=== PATIENT | female | born 1970 | race Hispanic/Latino ===

== ENCOUNTER 2017-06-08 20:30 | Observation (INO) | payer OTHER ==
[~2017-06-08] VITALS: Ht 162.6 cm; Wt 67.9 kg
[2017-06-08 20:40] VITALS: BP 138/82; PULSE 66; RESP 16; O2SAT 100
[2017-06-08] MEDS ORDERED: 0.9% Sodium Chloride 1,000 ML IV ONE (21:06)
--- NOTE | 2017-06-08 21:06 | ED.REPORT ---
HPI-Abd Pain F 40 and Over Date of Service Jun 08, 2017 ED Provider: Tyler Maguire DO Pt is an otherwise healthy 46 year old female who presents to the ED complaining of RUQ and epigastric abdominal pain onset 5 days ago. She c/o associated nausea and vomiting onset yesterday night. The pt denies any other symptoms. Pt reports that her pain is exacerbated with deep breathing. She denies a history of cholecystectomy and appendectomy. Nursing Notes Stated Complaint: STOMACH PAIN,VOMITING Chief Complaint: Female Abdominal Pain Nursing Notes Reviewed: Yes Allergies: Uncoded Allergies: OPIATES (Adverse Reaction, Intermediate, 06/08/17) vomiting General Time Seen by MD: 21:06 Chief Complaint Abdominal pain Hx Obtained From: Patient Arrived By: Walk-in Sudden in Onset?: No Onset Occurred: 5 days ago Symptom Duration: Since onset Location: : Epigastric: RUQ Quality: Painful Radiation: : Does not radiate Severity: Current: Moderate Severity: Maximum: Moderate Recent Healthcare: No recent doctor visit, No recent hospitalization Similar Sx Previous: No Past Medical History Past Medical History None reported - healthy Past Surgical History Denies: Appendectomy, Cholecystectomy Smoking History Unknown if Ever Smoker Social History Alcohol Use: Denies alcohol use Drug Use: Denies drug use Other Social History: Good social support Ambulatory Status Independent Review of Systems Constitutional: Denies: Fever Respiratory: Denies: Non-productive cough GI: Reports: Abdominal pain, Nausea, Vomiting Complete sys rev & neg: except as marked. Physical Exam Vital Signs Vital Signs (First) Date Time Temp Pulse Resp B/P Pulse Ox O2 Delivery O2 Flow Rate FiO2 06/08/17 20:40 36.8 66 16 138/82 100 Room Air Initial VS: Reviewed Head / Eyes: Atraumatic, Normocephalic Neck: Supple, Full range of motion Extremities: Vascular intact, Neuro intact Skin: Warm, Dry, No cyanosis Neurologic: Alert, Oriented, Nonfocal Psychiatric: Mood/affect normal, Behavior normal General/Constitutional: Awake, Alert Respiratory / Chest: Atraumatic, Breath sounds NL, Breath sounds = bilat Cardiovascular: Heart rate NL, Regular rhythm, Heart sounds NL Abdomen: Soft Moderate epigastric and RUQ tenderness Back: Atraumatic, Full range of motion Interpretation & Diagnostics US ABDOMEN - LIMITED: CONCLUSION: Inflamed thickened wall consistent with cholecystitis Wet Read by: ED physician Lab Results Interpretation Result Diagram: 06/08/17212406/08/172124 Test 06/08/17 21:25 06/08/17 21:59 White Blood Count 5.5th/mm3 (3.8-10.1) Red Blood Count 4.24mil/mm3 (3.90-5.20) Hemoglobin 13.4g/dL (12.0-15.6) Hematocrit 40.2% (35.0-46.0) Mean Corpuscular Volume 94.8fL (81-100) Mean Corpuscular Hemoglobin 31.6pg (27.0-35.0) Mean Corpuscular Hemoglobin Concent 33.3% (32.0-37.0) Red Cell Distribution Width 13.8% (12.3-15.4) Platelet Count 284bil/L (150-400) Neutrophils (%) (Auto) 63.6% (40-74) Lymphocytes (%) (Auto) 26.0% (14-46) Monocytes (%) (Auto) 7.5% (4-12) Eosinophils (%) (Auto) 2.2% (0-5) Basophils (%) (Auto) 0.5% (0-3) Sodium Level 140mEq/L (134-144) Potassium Level 4.6mEq/L (3.5-5.2) Chloride Level 103mEq/L (97-108) Carbon Dioxide Level 23mmol/L (18-29) Blood Urea Nitrogen 13mg/dL (6-24) Creatinine 0.33mg/dL (0.57-1.00) Estimat Glomerular Filtration Rate 307mL/min (>59) Glucose Level 112mg/dL (60-99) Lactic Acid Level 1.3mmol/L (0.4-2.0) Calcium Level 9.1mg/dL (8.5-10.1) Magnesium Level 2.2mg/dL (1.6-2.6) Total Bilirubin 3.7mg/dL (0.0-1.2) Aspartate Amino Transf (AST/SGOT) 169U/L (0-50) Alanine Aminotransferase (ALT/SGPT) 223U/L (0-32) Alkaline Phosphatase 141U/L (25-150) Total Protein 7.4g/dL (6.4-8.4) Albumin 4.0g/dL (3.4-5.0) Lipase 38U/L (13-60) Urine Color Dark yellow (YELLOW) Urine Appearance Clear (CLEAR,HAZY) Urine pH 7.0 (5.0-8.0) Urine Specific Wal[place] 1.015 (1.003-1.035) Urine Protein Negativemg/dL (NEG,TRACE) Urine Glucose (UA) Negativemg/dL (NEGATIVE) Urine Ketones Tracemg/dL (NEGATIVE) Urine Occult Blood Negative (NEGATIVE) Urine Nitrite Negative (NEGATIVE) Urine Bilirubin Moderate (NEGATIVE) Urine Ictotest Pos (Negative) Urine Urobilinogen 2.0mg/dL (NORMAL) Urine Leukocyte Esterase Small (NEGATIVE) Urine RBC 0-2/hpf (0-2) Urine WBC 6-10/hpf (0-5) Urine Epithelial Cells Occasional/hpf (NONE-MOD) Urine Crystals None seen (NONE SEEN) Urine Bacteria Few/hpf (NONE-FEW) Urine Hyaline Casts None/lpf (NONE) Urine Granular Casts None seen (NONE SEEN) Urine Waxy Casts None seen (NONE SEEN) Urine Red Blood Cell Casts None seen (NONE SEEN) Urine White Blood Cell Casts None seen (NONE SEEN) Urine Mucus Present (None Seen) Urine Trichomonas None seen (NONE SEEN) Urine Yeast None (NONE SEEN) Urinalysis Comment None Urine Culture Reflexed Indicated ECG Interpretation ECG Interpretation: Sinus rhythm with a rate of 59 Time: 21:25 Interpreted by: ED physician Normal ECG Interpretation: Normal ECG w/ rate of... Re-Eval/Medical Decision Med Decision/Clinical Course Postprandial right upper quadrant pain was associated jaundice and mild hepatitis. Ultrasound shows thickening of the gallbladder wall the gallbladder wall looks hyperemic may be edematous to me. I think this is acute cholecystitis clinically so therefore we will treat as such. We initiated broad -spectrum antibiotics. IV Toradol was given complete resolution of pain. With the biochemical abnormalities and the impressive ultrasound we will admit for definitive surgical involvement. I consulted with Dr. Curry and we will schedule an MR CP in the morning continue with Rogers and a surgical consultation. Source of Hx: Old records Re-Evaluation/Progress : Time of Eval: 01:03 Re-Evaluation/Progress Note: Pt rechecked. Informed pt of plan for admission. Pt understands agrees with plan for admission. All questions addressed. Consultation : Referral / Consult Name: Niranjan Curry MD Consulted With: Surgeon Call Returned at: 01:03 Machine Or Machinery Mechanic: Agrees with eval, Agrees with plan Note: Discussed pt's case. Counseled Regarding: Diagnosis, Lab results, Need for admission Discharge & Departure Primary Impression: Cholecystitis Additional Impression: Jaundice Disposition: ADMITTED TO HOSPITAL Discharge Condition All VS Reviewed: Yes Condition: Stable Referrals: Jie Rod MD (PCP) Scribe Attestation Portions of this note were transcribed by Jie Perez. I, Dr. Maguire personally performed the history, physical exam and medical decision-making; I reviewed and confirmed the accuracy of the information in the transcribed note. Signed by : Duyen Chase, 06/08/17. copies to: Jie Rod MD, Todd P DO Jun 08, 2017 21:06 Jie Mayfield Jun 08, 2017 21:51
[2017-06-08] MEDS ORDERED: Ondansetron 2 mg/mL 2 mL Inj IVPUSH PRN (21:10)
[2017-06-08 21:29] LABS: BASOPHILS % (AUTO) 0.5 % (0-3); EOSINOPHILS % (AUTO) 2.2 % (0-5); MONOCYTES % (AUTO) 7.5 % (4-12); Mean Corpuscular Hemoglobin 31.6 pg (27.0-35.0); Mean Corpuscular Volume 94.8 fL (81-100); NEUTROPHILS % (AUTO) 63.6 % (40-74); Platelet Count 284 bil/L (150-400)
[2017-06-08 21:50] LABS: Magnesium 2.2 mg/dL (1.6-2.6)
[2017-06-08 22:25] LABS: APPEARANCE,URINE CLEAR (CLEAR,HAZY); COLOR,URINE DARK YELLOW (YELLOW); OCCULT BLOOD,URINE NEGATIVE (NEGATIVE)
[2017-06-08 22:26] LABS: ICTOTEST,URINE POS (Negative)
[2017-06-08 23:20] VITALS: BP 115/75; PULSE 61; RESP 18; O2SAT 99
[2017-06-09] MEDS ORDERED: Piperacillin-Tazo 3.375 Gm Inj 3.375 GM in Dextrose 5% Minibag Plus 50 ML IV ONE (00:15)
[2017-06-09] MEDS ORDERED: Lactated Ringer's 1,000 ML IV SCH (01:21)
[2017-06-09] MEDS ORDERED: Ketorolac 15 mg/mL Inj IVPUSH PRN (01:25)
[2017-06-09] MEDS ORDERED: Ondansetron 2 mg/mL 2 mL Inj IVPUSH PRN (01:25)
[2017-06-09] MEDS ORDERED: Alum-Mag Hydrox-Simeth 30 mL Suspension PO PRN (01:25)
[2017-06-09 03:30] VITALS: BP 117/80; PULSE 62; RESP 20; O2SAT 99
[2017-06-09 04:16] VITALS: BP 117/80; PULSE 62; RESP 20; O2SAT 99
[2017-06-09 04:17] VITALS: BP 155/90; PULSE 57; RESP 16; O2SAT 97
--- NOTE | 2017-06-09 04:41 | NUR ---
ADMIT; 46 yr old female to room 1007 via gurney from e.r. approx. 0415 with c/o abd/epigastric pain past 5 days with nausea/vomiting which happened yesterday only. Niece accompanying pt. and wanted to interpret for her aunt. Pt speaks [place]. Npo. Eyes seem blood shot.
--- NOTE | 2017-06-09 06:27 | NUR ---
PAIN/GI; no c/o pain voiced. Dozed off and on. Voided per bathroom. No c/o nausea.
[2017-06-09] MEDS ORDERED: Piperacillin-Tazo 3.375 Gm Inj 3.375 GM in Dextrose 5% Minibag Plus 50 ML IV SCH (08:30)
--- NOTE | 2017-06-09 09:28 | DRSVH ---
PROCEDURE: US ABDOMEN, LIMITED ([id number]) INDICATIONS: Right upper quadrant pain TECHNIQUE: Real-time focused scanning was performed of the right upper quadrant, with image documentation. COMPARISON: None. FINDINGS: The liver is increased in echogenicity compatible with fatty infiltration. There is biliary sludge within the gallbladder which is not well-visualized. A stone cannot be exclu ded. There is gallbladder wall thickening measuring up to approximately 5-6 mm. No definite pericho lecystic fluid. No biliary ductal dilatation. Common bile duct measures up to 5 mm. IMPRESSION: 1. Limited study demonstrates biliary sludge and gallbladder wall thickening. No definite stone yani ntified but evaluation of the gallbladder is limited. No pericholecystic fluid. The findings are eq uivocal and if there is persistent clinical suspicion for cholecystitis, recommend a short-term follo wup repeat study or MRCP. Dictated by: Benny Amor M.D. on 06/09/2017 at 9:21 Approved by: Benny Amor M.D. on 06/09/2017 at 9:26
[2017-06-09 11:08] LABS: BASOPHILS % (AUTO) 0.3 % (0-3); MONOCYTES % (AUTO) 4.8 % (4-12); Mean Corpuscular Hemoglobin 31.3 pg (27.0-35.0); Mean Corpuscular Volume 94.1 fL (81-100); NEUTROPHILS % (AUTO) 61.7 % (40-74); Platelet Count 262 bil/L (150-400)
[2017-06-09 12:14] VITALS: BP 129/78; PULSE 51; RESP 16; O2SAT 98
--- NOTE | 2017-06-09 12:43 | DRSVH ---
PROCEDURE: MR ABDOMEN MRCP INDICATIONS: JAUNDICE, CHOLECYSTITIS TECHNIQUE: Coronal HASTE through the abdomen, axial 2-D FLASH in- and [id number], and breath-hold T2 FSE with fat saturation through the biliary system and pancreas. Oblique coronal and axial thin-slice HASTE, radial thick-slab HASTE centered on the extrahepatic bile ducts. COMPARISON: [facility], , [facility] L[facility], 06/08/2017, 23:43. FINDINGS: Image quality: Diagnostic. Pancreas and biliary system: There is gallbladder wall thickening measuring up to 5 mm. No discrete intraluminal gallstones identified. No definite pericholecystic fluid. No intra-or extra hepatic b iliary ductal dilatation. The common bile duct measures up to approximately 5 mm. No filling defect s identified within the common bile duct to suggest choledocholithiasis. The pancreatic duct is nond istended. No peripancreatic edema or fluid to suggest pancreatitis. Other solid organs: Liver and spleen are normal in size. No adrenal nodules. The kidneys demonstra te no hydronephrosis. Nodes and vessels: No retroperitoneal or mesenteric adenopathy by size criteria. Aorta and inferior vena cava are normal in size. Bowel and peritoneum: Visualized bowel loops are normal in caliber. No free fluid. Lung bases: No basal pleural effusions. Heart size is normal. Bones and soft tissues: No ventral hernias. Bone marrow is of normal overall signal. IMPRESSION: 1. Nonspecific gallbladder wall thickening without evidence of cholelithiasis or pericholecystic flu id. If there is clinical suspicion for acalculous cholecystitis, further evaluation may be obtained with a HIDA scan. 2. No biliary ductal dilatation or choledocholithiasis. Dictated by: Benny Amor M.D. on 06/09/2017 at 12:37 Approved by: Benny Amor M.D. on 06/09/2017 at 12:42
[2017-06-09] MEDS ORDERED: OXYC-530 PO (12:50)
--- NOTE | 2017-06-09 12:50 | PCM.DISURG ---
Surgical Discharge Instruction Date of Service Jun 09, 2017 Dates of Hospitalization Date of Hospital Admission Jun 09, 2017 at 03:46 Providers Admitting Physician: Niranjan Curry MD Primary Care Physician: Noprafiq Attending Physician: Niranjan Curry MD Discharge Diagnosis Discharge Diagnosis acalculous biliary colic versus hepatitis Diet Discharge Diet: Low fat Activity Discharge Activity-General: No restrictions Follow Up Plan Follow Up Plan in the General Surgery [facility] clinic in one week Call your provider for: Fever (over 101.5F), Increasing abdominal pain Niranjan Curry MD Jun 09, 2017 12:50
--- NOTE | 2017-06-09 14:00 | NUR ---
Discharge MRCP negative and pt. reported pain minimal. Reviewed discharge instructions with pt. and family. Her niece translated discharge instructions. Risks (sedation, dependence, misuse, etc), indications, and precautions of using Roxicodone were discussed. Pt. and family verbalized understanding. Encouraged and explained low fat diet. Pt. was discharged home at 1357. Family transported her home.
--- NOTE | 2017-06-09 14:39 | HP ---
[address] [address] HISTORY AND PHYSICAL PATIENT: REE MOONEY : 1970 MR#: [id number] ADMIT: 06/09/2017 JOB ID: [id number] CHIEF COMPLAINT: Abdominal pain. HISTORY OF PRESENT ILLNESS: The patient speaks [employer], and interpretation was achieved using a combination of a Frisian video reimbursement auditor, and her family, who were interpreting from Latvian directly to [employer]. The patient is otherwise healthy and presented to the emergency department last night with five days of epigastric and right upper quadrant abdominal pain. She was also having nausea and vomiting yesterday. She has not had any fevers or chills. She has never been jaundiced. Her initial workup included an ultrasound which was described over the phone to me as showing hyperemic gallbladder wall consistent with cholecystitis. This morning when seen by me, she is not complaining of any abdominal pain. She denies nausea. She otherwise feels good. PAST MEDICAL HISTORY: None. PAST SURGICAL HISTORY: None. MEDICATIONS: None. ALLERGIES: No known drug allergies. SOCIAL HISTORY: She works [employer]. She has never smoked. She denies alcohol and illicit drug use. FAMILY HISTORY: Her sister underwent cholecystectomy. REVIEW OF SYSTEMS: A 10-point review of systems is negative except as described in history of present illness. Specifically, no history of unplanned weight loss, no diarrhea. PHYSICAL EXAMINATION: Body mass index 25.7, temperature 36.5, pulse 57, blood pressure 155/90. Saturation 97% on room air. General: She is resting in bed in no acute distress. HEENT: Sclerae are anicteric. Mucous membranes are moist. Neck: No lymphadenopathy. Chest: Clear to auscultation bilaterally. Heart: Regular rate and rhythm. No murmurs. Abdomen is soft, nontender, nondistended. There is no Posey's sign. There are no hernias and no palpable masses. She has no guarding, no rebound tenderness. Extremities: No edema. Neuro: No deficits. Psychiatric: Affect is appropriate. LABORATORIES: White count is 3.5, hematocrit 39.7, platelets 262. Creatinine 0.36. Glucose 102. Total bilirubin 3.0. AST 207, ALT 230. Alkaline phosphatase 143, lipase 38. IMAGING: Ultrasound official read shows a limited study with some biliary sludge and mild gallbladder wall thickening. There is no definite stone but evaluation of the gallbladder is limited. There is no pericholecystic fluid. Findings are thought to be equivocal. MRCP was done, but has not been read yet. ASSESSMENT AND PLAN: A 46-year-old woman with abdominal pain and abnormal liver function tests. Clinically, I do not think she has acute cholecystitis. The only remaining question for me is that she could have choledocholithiasis or she possibly passed a common bile duct stone. I will wait for the official interpretation from Radiology about her MRCP and plans will be made depending on that study. If findings are negative for choledocholithiasis, I think she should be discharged from the hospital and followup for consideration of elective cholecystectomy. If findings are positive for choledocholithiasis, then I think she will need to be transferred to another hospital where ERCP is available.
--- NOTE | 2017-06-09 18:58 | PCM.DC.SUR ---
Discharge Summary Date of Service: Date of Hospital Admission: Jun 09, 2017 at 03:46 Date of Discharge: 06/09/2017 Diagnosis at Time of Discharge Acalculous biliary colic versus hepatitis Problems: Brief History and Physical: The patient is otherwise healthy and presented to the emergency department with five days of epigastric and right upper quadrant abdominal pain. She was also having nausea and vomiting The day prior to admission. She had not had any fevers or chills. She had never been jaundiced. Her initial workup included an ultrasound which was described as showing hyperemic gallbladder wall consistent with cholecystitis. When examined on the morning after admission the night before she was not complaining of any abdominal pain. She denied nausea. She otherwise felt good. Consultants: None Hospital Course: The patient was admitted and the following morning she was evaluated as above. MRCP did not demonstrate choledocholithiasis. The patient was discharged to home with a working diagnosis of biliary colic versus hepatitis. Pathology: None Disposition: The patient was discharged to home on her second hospital day. Follow-up Plan: She will follow-up in the surgery [facility] clinic in 1 week. oxyCODONE (oxyCODONE) 5 Mg Tablet 5 MG PO Q4H PRN PRN For Pain gAuila Arreguin PA-C Jun 09, 2017 18:58
== END 2017-06-09 14:00 | disposition home or self-care (01) ==
LOC: SED 20:30 → OSC 06-09 03:46 → INTOOBSV 06-09 03:46
PROVIDERS: ADMIT Student in an Organized Health Care Education/Training Program; ATTEND Student in an Organized Health Care Education/Training Program
DX: R10.13 Epigastric pain (principal); R10.11 Right upper quadrant pain; R11.2 Nausea with vomiting, unspecified
CPT/HCPCS: 36415; 74181; 76705; 80053; 81000; 81025; 83605; 83690; 83735; 85025; 87086; 93005; 96361; 96365; 96366; 96375; 96376; 99285; G0378; J1885; J2405; J2543; J7030; J7120